=== PATIENT | male | born 1975 | race Caucasian/White ===

== ENCOUNTER 2018-02-23 08:48 | Emergency (ER) | payer BC ==
[2018-02-23] MEDS ORDERED: NS 0.9% 1000 ML* 1,000 ML IV ONE (09:12)
[2018-02-23 09:38] LABS: ABS Basophils 0.1 10^3/ul (0-0.2); ABS Eosinophils 0.2 10^3/ul (0-0.6); ABS Lymphocytes 2.9 10^3/ul (1.0-4.8); ABS Monocytes 0.9 10^3/ul (0-0.8); ABS Neutrophils 7.5 10^3/ul (1.5-7.7); ABS Nucleated RBC 0 10^3/ul; Hematocrit 51 % (42-52); Hemoglobin 17.6 g/dl (14.0-18.0); Mean Corpuscular HGB Conc 34 g/dl (31-36); Mean Corpuscular Hemoglobin 34 pg (27-31); Mean Corpuscular Volume 98 fL (80-94); Mean Platelet Volume 8.7 fL (7.4-10.4); Nucleated Red Blood Cells % 0.1; Platelet Count 197 10^3/ul (150-450); Red Cell Distribution Width 13 % (10.5-15); White Blood Count 11.7 10^3/ul (3.5-10.8)
--- NOTE | 2018-02-23 09:42 | ED ---
Abdominal Pain/Male - HPI Summary HPI Summary: Patient presents with abdominal abdominal pain since Tuesday (3 days ago). He reports this started just below his navel and woke him at 4am. Pain has been constant with intermittent increases that shoot up to his navel. He denies associated symptoms of fevers, chills, nausea, vomiting, diarrhea. He reports he had 3 bowel movements this morning prior to arrival that were softer and branch controller in color than usual. He has been eating and drinking without difficulty although reports his appetite may be mildly reduced due to pain. He reports his pain is 6 out of 10 currently but declines pain medication. Denies hematochezia, melena as well as urinary urgency/frequency, flank pain, hematuria , penile or testicular pain or swelling/discharge. Additionally, he denies GI issues or previous abdominal surgeries. 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 Nothing alleviates sx and has not tried medication prior to arrival. Denies h/o constipation or diverticulitis/osis. Denies any other medical conditions and does not take mediation routinely, including NSAID's which he reports he "may take once in a while for a GANDHI". Smokes 1/2PPD, drinks ETOH on the weekends, and denies illicit drug use. Does report h/o kidney stone and that this does not feel the same today. - History of Current Complaint Chief Complaint: EDAbdPain Stated Complaint: ABD PAIN Time Seen by Provider: 02/23/18 08:59 Hx Obtained From: Patient Pain Intensity: 6 - Allergies/Home Medications Allergies/Adverse Reactions: Allergies Allergy/AdvReac Type Severity Reaction Status Date / Time No Known Allergies Allergy Verified 02/23/18 09:01 PMH/Surg Hx/FS Hx/Imm Hx Previously Healthy: Yes Endocrine/Hematology History: Denies: Hx Anticoagulant Therapy, Hx Blood Disorders, Autoimmune Disease Respiratory History: Reports: Other Respiratory Problems/Disorders - SMOKER History: Reports: Hx Kidney Stones Musculoskeletal History: Reports: Hx Arthritis - LEFT KNEE Sensory History: Denies: Hx Contacts or Glasses, Hx Hearing Aid Opthamlomology History: Denies: Hx Contacts or Glasses - Surgical History Surgery Procedure, Year, and Place: LEFT KNEE ACL RECONSTRUCTION, [facility]. RIGHT FOOT SURGERY TO REMOVE PORTION OF PENCIL, [facility] Hx Anesthesia Reactions: No Infectious Disease History: No Infectious Disease History: Denies: Traveled Outside the [place] in Last 30 Days - Family History Known Family History: Positive: None - Social History Occupation: Employed Full-time - [employer] Lives: With Family - girlfriend Alcohol Use: Weekly - weekends Hx Substance Use: No Substance Use Type: Reports: None Hx Tobacco Use: Yes Smoking Status (MU): Current Every Day Smoker Amount Used/How Often: 1/2 PPD Length of Time of Smoking/Using Tobacco: 10 YEARS Have You Smoked in the Last Year: Yes Review of Systems Constitutional: Negative Negative: Fever, Chills, Fatigue Eyes: Negative ENT: Negative Cardiovascular: Negative Negative: Chest Pain Respiratory: Negative Negative: Shortness Of Breath Positive: Abdominal Pain. Negative: Vomiting, Diarrhea, Nausea Positive: see HPI Musculoskeletal: Negative Skin: Negative Neurological: Negative Psychological: Normal All Other Systems Reviewed And Are Negative: Yes Physical Exam Triage Information Reviewed: Yes Vital Signs On Initial Exam: Initial Vitals Pulse Pulse Ox 69 98 02/23/18 08:52 02/23/18 08:52 Vital Signs Reviewed: Yes Appearance: Positive: Well-Appearing, Well-Nourished, Pain Distress - mild Skin: Positive: Warm, Skin Color Reflects Adequate Perfusion, Dry - no ecchymosis over ab/flanks Head/Face: Positive: Normal Head/Face Inspection Eyes: Positive: Normal, EOMI, Conjunctiva Clear - anicteric sclera ENT: Positive: Normal ENT inspection, Hearing grossly normal, Pharynx normal - mucosa somewhat dry Neck: Positive: Supple Respiratory/Lung Sounds: Positive: Clear to Auscultation, Breath Sounds Present. Negative: Rales, Rhonchi, Wheezes Cardiovascular: Positive: Normal, RRR, S1, S2 Abdomen Description: Positive: McBurney's Point Tenderness - also TTP over midline suprapubic region - no rebounding; (-) psoas; (-) obturator; upper ab NTTP. Negative: CVA Tenderness (R), CVA Tenderness (L), Distended Bowel Sounds: Positive: Present Male Genital Exam: Positive: Normal Genitalia, No Hernia. Negative: Scrotum Tenderness (R), Scrotum Tenderness (L), Testicular Tenderness (R), Testicular Tenderness (L) Musculoskeletal: Positive: Normal, Strength/ROM Intact Neurological: Positive: Normal, Sensory/Motor Intact, Alert, Oriented to Person Place, Time, CN Intact II-III Psychiatric: Positive: Normal Diagnostics - Vital Signs Vital Signs Temp Pulse Resp BP Pulse Ox 02/23/18 09:00 78 96 02/23/18 08:53 97.2 F 71 16 145/88 98 02/23/18 08:52 69 98 - Laboratory Result Diagrams: 02/23/18 09:24 02/23/18 09:24 Lab Statement: Any lab studies that have been ordered have been reviewed, and results considered in the medical decision making process. Abdominal Pain Fem Course/Dx - Course Course Of Treatment: CT ab/pelvis: diverticulitis w/o abscess - labs correlate w / minor/early infection/inflammation. Education about condition and tx plan. Reviewed danger s/sx of when to return to ED - pt voices understanding and agrees w/ plan. - Diagnoses Provider Diagnoses: Diverticulitis Discharge - Sign-Out/Discharge Documenting (check all that apply): Patient Departure - Discharge Plan Condition: Stable Disposition: HOME Prescriptions: Ciprofloxacin TAB* [Cipro 500 MG TAB*] 500 mg PO BID #20 tab Ibuprofen TAB* [Motrin TAB* 600 MG] 600 mg PO Q6H PRN #20 tab PRN Reason: Pain metroNIDAZOLE [Flagyl 500 MG TAB] 500 mg PO TID #30 tab Patient Education Materials: Diverticulitis (ED) Forms: *Work Release Referrals: Kimberly Pereira, JUNIOR ACCOUNTANT [Primary Care Provider] - Additional Instructions: Consume clear liquids for the next 48 hours - you may advance to soft foods after this and as tolerated Complete antibiotics as directed Take ibuprofen as needed for pain - take with food (or substantial liquid such as milk, etc to reduce risk of gastric pain) Follow-up with PCP early next week - call today to schedule an appointment *If worse, return to the ED - Billing Disposition and Condition Condition: STABLE Disposition: Home
[2018-02-23 09:47] LABS: Activated Partial Thrombo Time 33.1 seconds (26.0-36.3); INR 0.9 (0.77-1.02)
[2018-02-23 09:48] LABS: Urine Appearance Clear; Urine Bacteria Absent (Absent); Urine Bilirubin Negative (Negative); Urine Blood 2+ (Negative); Urine Color Yellow; Urine Glucose Negative (Negative); Urine Ketones Negative (Negative); Urine Nitrite Negative (Negative); Urine Protein Negative (Negative); Urine Red Blood Cell 1+(3-5/hpf) (Absent); Urine Specific Gravity 1.019 (1.010-1.030); Urine Urobilinogen Negative (Negative); Urine White Blood Cell Trace(0-5/hpf) (Absent)
[2018-02-23 10:02] LABS: Albumin 4.3 g/dL (3.2-5.2); Albumin/Globulin Ratio 1.4 (1-3); BUN/Creatinine Ratio 18.9 (8-20); C Reactive Protein 25.88 mg/L (<8.01); Calcium 9.3 mg/dL (8.6-10.3); EGFR Non-African American 76.6 (>60); Potassium 4.3 mmol/L (3.5-5.0); Total Bilirubin 0.5 mg/dL (0.2-1.0); Total Protein 7.3 g/dL (6.4-8.9)
[2018-02-23] MEDS ORDERED: Iohexol 300* (CONTRAST) 10 ML SDV IV ONE (11:30)
[2018-02-23 13:14] VITALS: BP 148/88
== END 2018-02-23 13:05 | disposition home or self-care (01) ==
LOC: ED 08:48
DX: K57.92 Diverticulitis of intestine, part unspecified, without perforation or abscess without bleeding (principal); Z87.442 Personal history of urinary calculi; F17.210 Nicotine dependence, cigarettes, uncomplicated; K76.0 Fatty (change of) liver, not elsewhere classified; K45.8 Other specified abdominal hernia without obstruction or gangrene
CPT/HCPCS: 36415; 74177; 80053; 81003; 81015; 83605; 83690; 83735; 85025; 85610; 85730; 86140; 87086; 96361; 96374; 99283; Q9967

== ENCOUNTER 2020-11-01 18:58 | Inpatient (IN) ==
[2020-11-02 01:12] LABS: Hematocrit 46 % (42-52); Mean Corpuscular HGB Conc 35 g/dL (31-36); Mean Corpuscular Hemoglobin 35 pg (27-31); Mean Corpuscular Volume 100 fL (80-94); Mean Platelet Volume 7.7 fL (7.4-10.4); Platelet Count 314 10^3/uL (150-450); Red Blood Count 4.57 10^6 /uL (4.18-5.48); Red Cell Distribution Width 14 % (10-15); White Blood Count 19.8 10^3/uL (3.5-10.8)
[2020-11-02 01:30] LABS: Albumin/Globulin Ratio 1.2 (1-3); C Reactive Protein 204.56 mg/L (<8.01); Calcium 9.5 mg/dL (8.6-10.3); EGFR Non-African American 85.1 (>60); Globulin 3.4 g/dL (2-4); Potassium 4.2 mmol/L (3.5-5.0); Total Bilirubin 0.6 mg/dL (0.2-1.0); Total Protein 7.4 g/dL (6.4-8.9)
[2020-11-02 01:47] LABS: ABS Basophils 0.1 10^3/ul (0-0.2); ABS Eosinophils 0.1 10^3/ul (0-0.6); ABS Lymphocytes 2.4 10^3/ul (1.0-4.8); ABS Monocytes 1.6 10^3/ul (0-0.8); ABS Neutrophils 15.5 10^3/ul (1.5-7.7); Eosinophil % 0.7 %; Lymphocyte % 12.1 %
[2020-11-02] MEDS ORDERED: Iohexol 300 (CONTRAST) 10 ML SDV IV ONE (01:53)
[2020-11-02] MEDS ORDERED: Piperacillin/Tazobac ADVAN 3.375 GM in NS 0.9% 100 ml BAG 100 ML IV ONE (03:28)
[2020-11-02] MEDS ORDERED: NS 0.9% 1000 ml BAG 1,000 ML IV SCH (04:45)
[2020-11-02] MEDS ORDERED: Ondansetron 4 mg VIAL 2 MG/ML 2 ml VIAL IV PRN (04:46)
[2020-11-02] MEDS ORDERED: Zosyn per Pharmacy NOTE FOLLOW UP SCH (05:00)
[2020-11-02] MEDS ORDERED: Enoxaparin 100 MG/ML SYR SUBCUT SCH (09:00)
[2020-11-02] MEDS: ZOSYN 3.375 GM Q8H per EXTENDED INFUSION IV SCH ×2 (11:08→18:14)
[2020-11-02 11:18] LABS: Urine Appearance Clear; Urine Bilirubin Negative (Negative); Urine Blood 3+ (Negative); Urine Color Yellow; Urine Glucose Negative (Negative); Urine Ketones Negative (Negative); Urine Nitrite Negative (Negative); Urine Protein Negative (Negative); Urine Specific Gravity 1.031 (1.002-1.030); Urine Urobilinogen Negative (Negative)
[2020-11-02 12:14] LABS: Urine Bacteria Absent (Absent); Urine Red Blood Cell 3+(>10/hpf) (Absent); Urine White Blood Cell Trace(0-5/hpf) (Absent)
[2020-11-03] MEDS: ZOSYN 3.375 GM Q8H per EXTENDED INFUSION IV SCH ×3 (03:13→21:55)
[2020-11-03 06:20] LABS: Hematocrit 43 % (42-52); Mean Corpuscular HGB Conc 35 g/dL (31-36); Mean Corpuscular Hemoglobin 35 pg (27-31); Mean Corpuscular Volume 99 fL (80-94); Mean Platelet Volume 8.3 fL (7.4-10.4); Platelet Count 299 10^3/uL (150-450); Red Blood Count 4.31 10^6 /uL (4.18-5.48); Red Cell Distribution Width 14 % (10-15); White Blood Count 20.2 10^3/uL (3.5-10.8)
[2020-11-03 06:33] LABS: C Reactive Protein 203.07 mg/L (<8.01); Calcium 8.6 mg/dL (8.6-10.3); EGFR African American 91.8 (>60); EGFR Non-African American 75.9 (>60); Potassium 4.1 mmol/L (3.5-5.0)
[2020-11-03 07:45] LABS: ABS Basophils 0.1 10^3/ul (0-0.2); ABS Eosinophils 0.1 10^3/ul (0-0.6); ABS Lymphocytes 2.7 10^3/ul (1.0-4.8); ABS Monocytes 1.9 10^3/ul (0-0.8); ABS Neutrophils 15.4 10^3/ul (1.5-7.7); Eosinophil % 0.5 %; Lymphocyte % 13.2 %
[2020-11-03 14:03] LABS: INR 1.43 (0.86-1.15)
[2020-11-03] MEDS ORDERED: fentaNYL 100 mcg/2 ml 50 MCG/ML VIAL ONE (14:05)
[2020-11-04] MEDS: ZOSYN 3.375 GM Q8H per EXTENDED INFUSION IV SCH ×3 (05:12→21:04)
[2020-11-04] MEDS ORDERED: Buffered Lidocaine 1% SYRIN 1 ml INTRADERM ONE (13:22)
[2020-11-05] MEDS: ZOSYN 3.375 GM Q8H per EXTENDED INFUSION IV SCH ×2 (05:01→13:07)
[2020-11-05 07:07] LABS: Hematocrit 43 % (42-52); Hemoglobin 15.2 g/dL (14.0-18.0); Mean Corpuscular HGB Conc 35 g/dL (31-36); Mean Corpuscular Hemoglobin 35 pg (27-31); Mean Corpuscular Volume 100 fL (80-94); Mean Platelet Volume 7.9 fL (7.4-10.4); Platelet Count 325 10^3/uL (150-450); Red Blood Count 4.34 10^6 /uL (4.18-5.48); Red Cell Distribution Width 14 % (10-15); White Blood Count 9.1 10^3/uL (3.5-10.8)
[2020-11-05 07:12] LABS: Calcium 8.6 mg/dL (8.6-10.3); EGFR African American 98.2 (>60); EGFR Non-African American 81.2 (>60)
[2020-11-05 08:02] LABS: ABS Basophils 0.1 10^3/ul (0-0.2); ABS Eosinophils 0.3 10^3/ul (0-0.6); ABS Lymphocytes 3.1 10^3/ul (1.0-4.8); ABS Monocytes 0.9 10^3/ul (0-0.8); ABS Neutrophils 4.7 10^3/ul (1.5-7.7); Eosinophil % 3.1 %; Lymphocyte % 34.4 %
[2020-11-05] MEDS ORDERED: cefTRIAXone 2 GM ADDV.VIAL 2 GM in NS 0.9% 100 ml BAG 100 ML IV SCH (21:00)
[2020-11-06 06:25] LABS: ABS Basophils 0.2 10^3/ul (0-0.2); ABS Eosinophils 0.4 10^3/ul (0-0.6); ABS Lymphocytes 3.3 10^3/ul (1.0-4.8); ABS Neutrophils 8.9 10^3/ul (1.5-7.7); Eosinophil % 2.6 %; Hematocrit 45 % (42-52); Hemoglobin 15.8 g/dL (14.0-18.0); Lymphocyte % 24.3 %; Mean Corpuscular HGB Conc 35 g/dL (31-36); Mean Corpuscular Hemoglobin 35 pg (27-31); Mean Corpuscular Volume 99 fL (80-94); Mean Platelet Volume 7.6 fL (7.4-10.4); Platelet Count 382 10^3/uL (150-450); Red Blood Count 4.51 10^6 /uL (4.18-5.48); Red Cell Distribution Width 14 % (10-15); White Blood Count 13.8 10^3/uL (3.5-10.8)
[2020-11-06 06:44] LABS: Potassium 4.2 mmol/L (3.5-5.0)
[2020-11-06 06:50] LABS: C Reactive Protein 69.68 mg/L (<8.01); EGFR African American 110.9 (>60); EGFR Non-African American 91.7 (>60)
[2020-11-06 12:40] VITALS: BP 115/69
[2020-11-06] MEDS ORDERED: cefTRIAXone 2 GM ADDV.VIAL 2 GM in NS 0.9% 100 ml BAG 100 ML IV SCH (14:00)
== END 2020-11-06 15:40 | disposition home or self-care (01) | DRG 223 ==
LOC: ED 18:58 → SUATTDRO 11-02 04:36 → SSU 11-02 04:36
PROVIDERS: ADMIT Hospitalist; ATTEND Hospitalist